=== PATIENT | male | born 1940 | race Caucasian/White ===

== ENCOUNTER 2019-09-20 22:40 | Emergency (ER) | payer MEDICARE ==
[~2019-09-20] VITALS: Ht 157.5 cm; Wt 75.6 kg
[~2019-09-20 22:40] MED LIST: ACYC-114 PO; CALC-545 PO; CETI-158 PO; FLUC100T4 PO; FOLI0.4T2 PO; LEVO500T47 PO; MULT-257 PO; [UNRECOGNIZED DRUG - CODE] IV; [UNRECOGNIZED DRUG - CODE] PO
--- NOTE | 2019-09-20 23:40 | NUR ---
PT AMBULATED TO ROOM 09 STATING HIS MD TOLD HIM HE NEEDED ANOTHER TRANSFUSION. LAST TRANSFUSION TOOK PLACE HERE LAST WEEK. PT A&OX4, RESP EVEN AND UNLABORED, MONITORS IN PLACE. LAB CALLED WITH CRITICAL RESULTS: WBC 1.3 PLATELET 8 H&H 6.5/19.4 NOTIFIED
[2019-09-20 23:42] LABS: MEAN CORPUSCULAR HEMOGLOBIN 29.5 pg (27.5-34.5); MEAN CORPUSCULAR HGB CONC 33.8 g/dL (33.2-36.2); MEAN CORPUSCULAR VOLUME 87.4 fL (81-97); MEAN PLATELET VOLUME 8.2 fL (7.4-10.4); RED BLOOD COUNT 2.22 x10^6/uL (4.38-5.82); RED CELL DISTRIBUTION WIDTH 13.2 % (9.4-14.8)
[2019-09-20 23:44] LABS: PLATELET COUNT 8 x10^3/uL (130-400)
[2019-09-20 23:48] LABS: MD YES
[2019-09-21] LABS: LYMPH#(MANUAL) 0.86 x10^3/uL (1-3.4); LYMPHS% (MANUAL) 66 % (22-44); MONOS#(MANUAL) 0.18 x10^3/uL (0.3-2.7); MONOS% (MANUAL) 14 % (2-9); SEG#(MANUAL) 0.26 x10^3/uL (1.8-6.8); SEGS% (MANUAL) 20 % (42-75)
[2019-09-21 00:01] LABS: <PLATELET ESTIMATE> DECREASED; <PLT MORPHOLOGY> QNS FOR PLT MORPH; ANISOCYTOSIS 1+; OVALOCYTES 1+
--- NOTE | 2019-09-21 00:30 | NUR ---
LAB CALLED AND CONFIRMED THAT OK TO TRANSFUSE AB POS PLATLETS TO A POS PT.
[2019-09-21 00:34] VITALS: BP 111/57
[2019-09-21 00:49] VITALS: BP 114/71
[2019-09-21 01:05] VITALS: BP 117/51
[2019-09-21 01:25] VITALS: BP 120/70
[2019-09-21 01:40] VITALS: BP 122/68
[2019-09-21 03:00] VITALS: BP 114/72
--- NOTE | 2019-09-21 03:18 | NUR ---
BLOOD PRODUCT ENDED AT 0300. PATIENT DENIES ANY COMPLICATIONS. PATIENT AMBULATORY WITHOUT COMPLICATIONS TO DISCHARGE DESK WITH . VITAL SIGNS STABLE. NO NOTED REACTION TO BLOOD TRANSFUSIONS. PATIENT VERBALIZED UNDERSTANDING OF DISCHARGE EDUCATION AND SELF CARE AT HOME.
== END 2019-09-21 03:21 | disposition home or self-care (01) ==
LOC: ED 23:42
DX: D69.6 Thrombocytopenia, unspecified (principal); D61.818 Other pancytopenia; D46.9 Myelodysplastic syndrome, unspecified; D63.8 Anemia in other chronic diseases classified elsewhere
CPT/HCPCS: 36415; 36430; 85025; 86850; 86900; 86923; 99285; P9037; P9040

== ENCOUNTER 2019-10-03 08:56 | Day surgery (SDC) | payer MEDICARE ==
[~2019-10-03] VITALS: Ht 157.5 cm; Wt 73.2 kg
[2019-10-03 09:48] VITALS: BP 128/77
[2019-10-03] MEDS ORDERED: SODIUM CHLORIDE 0.9% 1,000 ML IV SCH (09:50)
[2019-10-03] MEDS ORDERED: LIDOCAINE 1%, 20ML ONE (13:43)
[2019-10-03] MEDS ORDERED: LIDOCAINE 1%, 10ML ONE (14:10)
[2019-10-03] MEDS ORDERED: MIDAZOLAM 1 MG/ML, 5ML ONE (14:12)
[2019-10-03] MEDS ORDERED: FLUMAZENIL 0.1 MG/1 ML, 5ML ONE (14:13)
[2019-10-03] MEDS ORDERED: NALOXONE 1 MG/ML, 2ML ONE (14:13)
[2019-10-03] MEDS ORDERED: FENTANYL PF 100 MCG/2ML ONE (14:13)
[2019-10-05] MEDS ORDERED: PROC10TA2 PO (15:21)
== END 2019-10-03 15:40 | disposition home or self-care (01) ==
LOC: OUT 08:56
PROVIDERS: ATTEND Internal Medicine Hematology & Oncology
DX: T80.218A Other infection due to central venous catheter, initial encounter (principal); D46.9 Myelodysplastic syndrome, unspecified; D61.818 Other pancytopenia; Z79.899 Other long term (current) drug therapy; Z90.49 Acquired absence of other specified parts of digestive tract; Z96.653 Presence of artificial knee joint, bilateral; Y83.8 Other surgical procedures as the cause of abnormal reaction of the patient, or of later complication, without mention of misadventure at the time of the procedure
CPT/HCPCS: 36590; 77001; 87070; 87075; 87186; 99156; 99157; J2250; J3010; J2310

== ENCOUNTER → 2019-10-13 | Outpatient (CLI) | payer MEDICARE ==
[~2019-10-13] MED LIST changes: +PROC10TA2 PO
== END | disposition home or self-care (01) ==
LOC: WOUND 09:30
PROVIDERS: ATTEND Family Medicine
DX: T81.31XA Disruption of external operation (surgical) wound, not elsewhere classified, initial encounter (principal); L03.313 Cellulitis of chest wall; E11.628 Type 2 diabetes mellitus with other skin complications; D46.Z Other myelodysplastic syndromes; I10 Essential (primary) hypertension; D63.8 Anemia in other chronic diseases classified elsewhere; Z96.653 Presence of artificial knee joint, bilateral; Z90.49 Acquired absence of other specified parts of digestive tract; Z79.899 Other long term (current) drug therapy; Y92.238 Other place in hospital as the place of occurrence of the external cause; Y83.8 Other surgical procedures as the cause of abnormal reaction of the patient, or of later complication, without mention of misadventure at the time of the procedure
CPT/HCPCS: G0463

== ENCOUNTER → 2019-10-16 | Outpatient (CLI) | payer MEDICARE | END | disposition home or self-care (01) | LOC: WOUND 07:59 | PROVIDERS: ATTEND Internal Medicine | DX: T81.31XD Disruption of external operation (surgical) wound, not elsewhere classified, subsequent encounter (principal); L03.313 Cellulitis of chest wall; E11.628 Type 2 diabetes mellitus with other skin complications; D46.Z Other myelodysplastic syndromes; I10 Essential (primary) hypertension; D63.8 Anemia in other chronic diseases classified elsewhere; Z96.653 Presence of artificial knee joint, bilateral; Z90.49 Acquired absence of other specified parts of digestive tract; Z79.899 Other long term (current) drug therapy; Y83.8 Other surgical procedures as the cause of abnormal reaction of the patient, or of later complication, without mention of misadventure at the time of the procedure | CPT/HCPCS: G0463 ==

== ENCOUNTER → 2019-10-18 | Outpatient (CLI) | payer MEDICARE | END | disposition home or self-care (01) | LOC: WOUND 08:59 | PROVIDERS: ATTEND Internal Medicine | DX: T81.31XD Disruption of external operation (surgical) wound, not elsewhere classified, subsequent encounter (principal); L03.313 Cellulitis of chest wall; E11.628 Type 2 diabetes mellitus with other skin complications; D46.Z Other myelodysplastic syndromes; I10 Essential (primary) hypertension; D63.8 Anemia in other chronic diseases classified elsewhere; Z96.653 Presence of artificial knee joint, bilateral; Z90.49 Acquired absence of other specified parts of digestive tract; Z79.899 Other long term (current) drug therapy; Y83.8 Other surgical procedures as the cause of abnormal reaction of the patient, or of later complication, without mention of misadventure at the time of the procedure | CPT/HCPCS: G0463 ==

== ENCOUNTER 2019-10-20 10:15 | Outpatient (CLI) | payer MEDICARE | END 2019-10-20 23:59 | disposition home or self-care (01) | LOC: WOUND 10:15 | PROVIDERS: ATTEND Family Medicine | DX: T81.31XD Disruption of external operation (surgical) wound, not elsewhere classified, subsequent encounter (principal); L03.313 Cellulitis of chest wall; D46.Z Other myelodysplastic syndromes; D63.1 Anemia in chronic kidney disease; I10 Essential (primary) hypertension; D61.818 Other pancytopenia; Z96.653 Presence of artificial knee joint, bilateral; Z90.49 Acquired absence of other specified parts of digestive tract; Y83.8 Other surgical procedures as the cause of abnormal reaction of the patient, or of later complication, without mention of misadventure at the time of the procedure | CPT/HCPCS: 97597 ==

== ENCOUNTER → 2019-10-31 | Outpatient (CLI) | payer MEDICARE | END | disposition home or self-care (01) | LOC: WOUND 14:52 | PROVIDERS: ATTEND Nurse Practitioner Family | DX: T81.31XD Disruption of external operation (surgical) wound, not elsewhere classified, subsequent encounter (principal); L03.313 Cellulitis of chest wall; E11.628 Type 2 diabetes mellitus with other skin complications; D46.Z Other myelodysplastic syndromes; D63.1 Anemia in chronic kidney disease; I10 Essential (primary) hypertension; D61.818 Other pancytopenia; Z96.653 Presence of artificial knee joint, bilateral; Z79.899 Other long term (current) drug therapy; Z90.49 Acquired absence of other specified parts of digestive tract; Y83.8 Other surgical procedures as the cause of abnormal reaction of the patient, or of later complication, without mention of misadventure at the time of the procedure | CPT/HCPCS: 17250 ==

== ENCOUNTER → 2019-11-07 | Outpatient (CLI) | payer MEDICARE | END | disposition home or self-care (01) | LOC: WOUND 07:56 | PROVIDERS: ATTEND Nurse Practitioner Family | DX: T81.31XD Disruption of external operation (surgical) wound, not elsewhere classified, subsequent encounter (principal); D46.Z Other myelodysplastic syndromes; D63.1 Anemia in chronic kidney disease; E11.22 Type 2 diabetes mellitus with diabetic chronic kidney disease; N18.9 Chronic kidney disease, unspecified; I12.9 Hypertensive chronic kidney disease with stage 1 through stage 4 chronic kidney disease, or unspecified chronic kidney disease; D63.8 Anemia in other chronic diseases classified elsewhere; Z96.653 Presence of artificial knee joint, bilateral; Z90.49 Acquired absence of other specified parts of digestive tract; Y83.8 Other surgical procedures as the cause of abnormal reaction of the patient, or of later complication, without mention of misadventure at the time of the procedure | CPT/HCPCS: 97597 ==

== ENCOUNTER → 2019-11-14 | Outpatient (CLI) | payer MEDICARE | END | disposition home or self-care (01) | LOC: WOUND 09:27 | PROVIDERS: ATTEND Nurse Practitioner Family | DX: T81.31XD Disruption of external operation (surgical) wound, not elsewhere classified, subsequent encounter (principal); D46.Z Other myelodysplastic syndromes; D63.1 Anemia in chronic kidney disease; E11.22 Type 2 diabetes mellitus with diabetic chronic kidney disease; N18.9 Chronic kidney disease, unspecified; I12.9 Hypertensive chronic kidney disease with stage 1 through stage 4 chronic kidney disease, or unspecified chronic kidney disease; D63.8 Anemia in other chronic diseases classified elsewhere; Z96.653 Presence of artificial knee joint, bilateral; Z90.49 Acquired absence of other specified parts of digestive tract; Y83.8 Other surgical procedures as the cause of abnormal reaction of the patient, or of later complication, without mention of misadventure at the time of the procedure; Z79.899 Other long term (current) drug therapy | CPT/HCPCS: G0463 ==

== ENCOUNTER → 2019-12-08 | Outpatient (CLI) | payer MEDICARE | END | disposition home or self-care (01) | LOC: RAD 11:14 | PROVIDERS: ATTEND Internal Medicine Hematology & Oncology | DX: D46.22 Refractory anemia with excess of blasts 2 (principal); Z79.899 Other long term (current) drug therapy; Z90.49 Acquired absence of other specified parts of digestive tract; Z96.653 Presence of artificial knee joint, bilateral | CPT/HCPCS: 36573; C1751 ==